=== PATIENT | female | born 1985 | race Caucasian/White ===

== ENCOUNTER 2023-04-14 02:35 | Inpatient (IN) | payer OTHER ==
[2023-04-14] MEDS: ELECTROLYTE-148 SOLN 500 ML IV ONE (03:15)
[2023-04-14] MEDS ORDERED: AMPICILLIN SODIUM 2 GM VIAL ONE (03:18)
[2023-04-14] MEDS: AMPICILLIN - 2 GM in SODIUM CHLORIDE 100 ML IVPB ONE (03:20)
[2023-04-14] MEDS ORDERED: AMPICILLIN - 2 GM in SODIUM CHLORIDE 100 ML IVPB ONE (03:28)
[2023-04-14 03:40] LABS: BASO % 0.2 % (0-2.0); EOS % 0.6 % (0-4.5); HEMATOCRIT 35.3 % (32.4-45.2); HEMOGLOBIN 11.9 GM/dL (10.7-15.3); LYMPH % 20.3 % (8-40); MCH 28.4 pg (25.7-33.7); MCHC 33.8 g/dl (32.0-36.0); MONO % 5.4 % (3.8-10.2); NEUT % 73.5 % (42.8-82.8); PLATELET COUNT 106 10^3/uL (134-434); RBC 4.21 M/mm3 (3.60-5.2); WHITE BLOOD COUNT 12.9 K/mm3 (4.0-10.0)
[2023-04-14 03:51] LABS: INR 0.97 (0.83-1.09); PROTHROMBIN TIME (PATIENT) 11.2 SEC (9.7-13.0)
[2023-04-14 03:54] VITALS: BMI 29.7
[2023-04-14 03:54] LABS: ACTIVATED PTT 27.2 SECONDS (25.2-36.5)
[2023-04-14 03:55] LABS: BLOOD UREA NITROGEN 10.5 mg/dL (7-18); CALCIUM 8.7 mg/dL (8.5-10.1)
[2023-04-14 03:59] LABS: CREATININE 0.6 mg/dL (0.55-1.3)
[2023-04-14] MEDS ORDERED: OXYTOCIN 30 UNITS in 0.9% NS 30 UNIT/500 ML INFUS.BAG IVPB ONE (04:22)
[2023-04-14] MEDS: OXYTOCIN 30 UNITS in 0.9% NS 30 UNIT/500 ML INFUS.BAG IVPB SCH (04:30)
[2023-04-14] MEDS ORDERED: BUTORPHANOL TARTRATE 2 MG/ML VIAL ONE (05:26)
[2023-04-14] MEDS ORDERED: PROMETHAZINE HCL 25 MG/1 ML VIAL ONE (05:26)
[2023-04-14] MEDS: PROMETHAZINE HCL 25 MG/1 ML VIAL IVPB ONE (05:30)
[2023-04-14] MEDS: BUTORPHANOL TARTRATE 1 MG/ML VIAL IVPB ONE (05:30)
[2023-04-14] MEDS: ELECTROLYTE-148 SOLN 1,000 ML IV SCH (05:30)
[2023-04-14] MEDS ORDERED: AMPICILLIN SODIUM 1 GM VIAL ONE (06:29)
[2023-04-14] MEDS: AMPICILLIN - 1 GM in SODIUM CHLORIDE 100 ML IVPB SCH (06:30)
[2023-04-14] MEDS ORDERED: OXYTOCIN 20 UNITS in 0.9% NS 20 UNIT/1,000 ML INFUS.BAG IV ONE (07:16)
[2023-04-14] MEDS: OXYTOCIN 20 UNITS in 0.9% NS 20 UNIT/1,000 ML INFUS.BAG IV SCH (08:06)
[2023-04-14] MEDS ORDERED: oxyCODONE HCL 5 MG TABLET PO PRN (08:14)
[2023-04-14] MEDS ORDERED: ACETAMINOPHEN 325 MG TABLET (FP) PO PRN (08:14)
[2023-04-14] MEDS ORDERED: BENZOCAINE 20% 57 GM BOTTLE TP PRN (08:14)
[2023-04-14] MEDS ORDERED: METHYLERGONOVINE MALEATE 0.2 MG/1 ML AMP IM PRN (08:14)
[2023-04-14] MEDS ORDERED: BISACODYL 10 MG SUPP.RECT RC PRN (08:14)
[2023-04-14 08:42] LABS: CORD BASE EXCESS -5.9 mmol/L (0-2); CORD HCO3 22.8 mmHg (20-29); CORD pH 7.219 (7.14-7.44)
[2023-04-14 08:44] LABS: CORD BASE EXCESS -6.3 mmol/L (0-2); CORD HCO3 20.1 mmHg (20-29); CORD PCO2 42.7 mmHg (30-78); CORD pH 7.29 (7.14-7.44)
[2023-04-14] MEDS: PRENATAL VITAMINS W/ FOLIC ACID TABLET (FP) PO SCH (10:00)
[2023-04-14] MEDS: IBUPROFEN 600 MG TABLET (FP) PO PRN (14:36)
[2023-04-15 08:26] LABS: BASO % 0.3 % (0-2.0); EOS % 0.8 % (0-4.5); HEMATOCRIT 34.3 % (32.4-45.2); HEMOGLOBIN 11.3 GM/dL (10.7-15.3); LYMPH % 26.6 % (8-40); MCH 28.1 pg (25.7-33.7); MCHC 32.9 g/dl (32.0-36.0); MEAN CELL VOLUME 85.5 fl (80-96); MEAN PLT VOLUME 10.8 fl (7.5-11.1); MONO % 4.8 % (3.8-10.2); NEUT % 67.5 % (42.8-82.8); PLATELET COUNT 104 10^3/uL (134-434); RBC 4.01 M/mm3 (3.60-5.2); RDW 18.2 % (11.6-15.6); WHITE BLOOD COUNT 10.8 K/mm3 (4.0-10.0)
[2023-04-15] MEDS ORDERED: SENNOSIDES/DOCUSATE COMBO (SENNA PLUS) TABLET (UD) PO PRN (22:00)
[2023-04-15 22:09] VITALS: RESP 18
[2023-04-16 10:38] VITALS: BP 122/62; PULSE 102; TEMP 97.9
[2023-04-16] MEDS: WITCH HAZEL 50% (TUCKS) 40 PAD/JAR PAD TP PRN (11:55)
[2023-04-16] MEDS: BENZOCAINE 28 GM HEMORRHOIDAL OINTMENT TP PRN (11:55)
== END 2023-04-16 13:10 | disposition home or self-care (01) | DRG 560 ==
LOC: JDEL 02:35 → JLDR 03:00 → J3W 10:50
PROVIDERS: ADMIT Obstetrics & Gynecology; ATTEND Obstetrics & Gynecology
PROC: 10E0XZZ Delivery of Products of Conception, External Approach (ICD-10-PCS; principal; 2023-04-14)
DX: O99.824 Streptococcus B carrier state complicating childbirth (principal); Z3A.39 39 weeks gestation of pregnancy; Z37.0 Single live birth
CPT/HCPCS: 36415; 36600; 80048; 82803; 85025; 85610; 85730; 86780; 86850; 86900; 86901